=== PATIENT | male | born 1950 | race Caucasian/White ===

== ENCOUNTER → 2016-12-06 | Outpatient (CLI) | payer MEDICARE, MEDICAID ==
[~2016-12-06] MED LIST: AMPH5CAP PO; GLYB5TAB8 PO; LISI10TA7 PO; METF10002 PO; SIMV80TA5 PO
== END | disposition home or self-care (01) ==
LOC: RADPV 13:37
PROVIDERS: ATTEND Internal Medicine Cardiovascular Disease
DX: R00.0 Tachycardia, unspecified (principal)
CPT/HCPCS: 93005